=== PATIENT | female | born 1960 | race Hispanic/Latino ===

== ENCOUNTER 2025-01-04 12:57 | Outpatient (RCR) | payer MEDICARE | END 2025-01-05 | LOC: PT 12:57 | PROVIDERS: ATTEND Orthopaedic Surgery Sports Medicine | DX: M75.51 Bursitis of right shoulder (principal) ==

== ENCOUNTER 2025-02-14 13:00 | Outpatient (RCR) | payer MEDICARE | END 2025-03-07 | LOC: PT 13:00 | PROVIDERS: ATTEND Orthopaedic Surgery Sports Medicine | DX: M75.51 Bursitis of right shoulder (principal) ==